=== PATIENT | male | born 1965 | race Caucasian/White ===

== ENCOUNTER → 2019-04-14 | Outpatient (CLI) | payer OTHER ==
--- NOTE | 2019-04-14 12:49 | CONS ---
CONSULTATION REASON FOR CONSULTATION: Sleep apnea. I am seeing this patient upon the request of Dr. Talavera his primary care physician. The patient has sleep apnea. He was diagnosed back in 2013 with severe BRITNEY with a baseline AHI of 63 and the study was done at [facility]. Following that, the patient was given CPAP with a pressure of 9 cm of water. He continues to use the ResMed S9 series CPAP machine and his treatment has been successful over the years. Note that I have not seen this patient on a regular basis and last evaluation with me was in 2013. Over the years the patient has gained weight. He used to be around 210 pounds. Currently, he is up to 244. He felt the CPAP machine was not giving him the benefit it use to and this was attributed to his weight gain. Based on that, he increased his pressure from 9 to 11 cm of water. With this change, he is feeling better. He is sleeping good. He is waking up refreshed and alert during the day. No hypersomnia or sleepiness. Able to manage and is able to perform activities of the daily life without any difficulties. He is using AirFit P10 nose pillows. No nighttime awakenings for shortness of breath, chest pain, cough, sputum production, gasping or choking sensation. No snoring while on the CPAP. He goes to bed around 10 p.m., wakening up at 4:30 a.m. in the morning. He sleeps in different body positions, prefers to sleep on his side. He drinks 1 cup of coffee during the day. No alcohol. No substance abuse. No history of any motor vehicle accident because of feeling drowsy or sleepy. PAST MEDICAL HISTORY: 1. BRITNEY severe with an AHI of 63. 2. Obesity. 3. Hypothyroidism. 4. Hypertension. 5. Hyperlipidemia. SURGICAL HISTORY: Surgical history include appendectomy, surgery for bowel obstruction and left leg ORIF back in 1984. DRUG ALLERGIES: CODEINE and DARVON. OUTPATIENT MEDICATION LIST: Outpatient medication list includes levothyroxine on 125 mcg 1-1/2 tablets in the morning and omeprazole 20 mg p.o. q. day, indapamide 2.5 mg p.o. q. day, losartan 50 mg p.o. q. day, metoprolol 50 mg p.o. DAILY, potassium 20 mEq twice a day. SOCIAL HISTORY: The patient is a nonsmoker. No history of alcohol. No history of IV drugs. FAMILY HISTORY: Negative for sleep apnea, is positive for diabetes, hypertension, hyperlipidemia and stroke. REVIEW OF SYSTEMS: Fourteen-point review of system was done. Positive for weight gain. No sleepwalking or sleep talking. No history of any motor vehicle accident because of feeling drowsy or sleepy nor restlessness of lower extremities. No sleep paralysis or cataplexy. No heartburn. No depression. No anxiety. No claustrophobia. No sexual dysfunction at this point in time. No restless legs. PHYSICAL EXAMINATION: BP is 133/85, pulse 76, respirations 16, temperature 98.3, saturation 96% on room air. Weight is 242. Height is 5 feet 0 inches. Neck size 20-3/4 of an inch. Milner score of 10. BMI is 47.2. GENERAL APPEARANCE: Calm, comfortable. HEAD: Atraumatic, normocephalic. NECK: Supple. There is no JVD. No goiter or neck mass. LUNGS: Clear to auscultation. HEART: Sounds are regular rate and rhythm. Normal S1, S2. No murmurs. ABDOMEN: Obese, soft, nontender. Organs cannot be adequately palpated. EXTREMITIES: No edema, cyanosis or clubbing. NEUROLOGIC: Alert and oriented x3. No focal neurological deficits. PSYCHIATRIC: Negative for anxiety or depression. SKIN: Negative for any wounds or ulceration. IMPRESSION: 1. Severe symptomatic obstructive sleep apnea AHI of 63 currently on CPAP pressure of 11 cm of water. Original sleep study was done in 2013. The patient's AHI was 63. Patient has gained weight and current BMI is up to 47. 2. Hypothyroidism. 3. Hypertension. 4. Hyperlipidemia. PLAN: 1. Encourage weight loss. 2. Continue CPAP therapy at a pressure of 11 cm of water. The patient has a functioning ResMed S9 series. 3. Continue CPAP supplies including the AirFit P10 nose pillow. 4. Implement good sleep hygiene measures. Contact me back in a year or so for followup. His condition is stable. No need for any further adjustments at this point in time. MMODL / IJN: [id number] / MTDD
== END ==
LOC: SLEEP 11:44
PROVIDERS: ATTEND Internal Medicine Critical Care Medicine
DX: G47.33 Obstructive sleep apnea (adult) (pediatric) (principal); E03.9 Hypothyroidism, unspecified; I10 Essential (primary) hypertension; Z99.89 Dependence on other enabling machines and devices; Z79.899 Other long term (current) drug therapy
CPT/HCPCS: 99211